=== PATIENT | female | born 1995 | race African-American/Black ===

== ENCOUNTER 2020-03-30 20:02 | Emergency (ER) | payer SELFPAY ==
[~2020-03-30] VITALS: Ht 167.6 cm; Wt 120.6 kg
[2020-03-30] MEDS ORDERED: SODIUM CHLORIDE 0.9% 1,000 ML IV ONE (20:27)
[2020-03-30] MEDS ORDERED: ACTIVATED CHARCOAL 50 G/240 ML TUBE PO ONE (20:30)
[2020-03-30 21:21] LABS: HEMATOCRIT. 36.3 % (36.0-48.0); HEMOGLOBIN. 11.9 g/dL (12.0-16.0); LYMPHOCYTES % 37.1 % (20.0-50.0); MEAN CORPUSCULAR HEMOGLOBIN 27.5 pg (28.0-32.0); MEAN CORPUSCULAR VOLUME 83.9 fL (81.0-99.0); MEAN PLATELET VOLUME 7.9 fl (7.4-10.4); MONOCYTES % 1.2 % (2.0-8.0); NEUTROPHILS % 57.7 % (40.0-76.0); PLATELET 297 x1000/uL (130-400); RED BLOOD CELL COUNT 4.33 mill/uL (4.2-5.4); RED CELL DISTRIBUTION WIDTH 15.8 % (11.6-14.6)
[2020-03-30 21:29] LABS: HCG SCREEN NEGATIVE
[2020-03-30 21:31] LABS: INR 0.9; PROTHROMBIN TIME 10.3 sec (9.6-11.0)
[2020-03-30 21:49] LABS: CHLORIDE 107 mEq/L (98-107)
[2020-03-30 21:53] LABS: ETHANOL BLOOD < 10 mg/dL
[2020-03-30] MEDS ORDERED: LORAZEPAM 2MG/ML CPJ IV ONE (23:30)
[2020-03-31 00:24] LABS: COLOR URINE YELLOW (YELLOW); KETONES URINE TRACE (NEGATIVE); LEUKOCYTE ESTERASE URINE NEGATIVE (NEGATIVE); NITRITE URINE NEGATIVE (NEGATIVE); OCCULT BLOOD URINE NEGATIVE (NEGATIVE); PH URINE 6.5 (4.5-8.0); PROTEIN URINE TRACE (NEGATIVE); SPECIFIC GRAVITY URINE 1.028 (1.005-1.030); UROBILINOGEN URINE 0.2 E.U./dL (0.2-1.0)
[2020-03-31 00:25] LABS: CLARITY URINE HAZY (CLEAR)
[2020-03-31 00:41] LABS: *AMPHETAMINES SCREEN URINE NEGATIVE (NEGATIVE); *BARBITURATES SCREEN URINE NEGATIVE (NEGATIVE); *BENZODIAZEPINES SCREEN URINE NEGATIVE (NEGATIVE); *COCAINE SCREEN URINE NEGATIVE (NEGATIVE); METHADONE URINE SCREEN NEGATIVE (NEGATIVE); OPIATES URINE SCREEN NEGATIVE (NEGATIVE); PHENCYCLIDINE URINE SCREEN NEGATIVE (NEGATIVE)
[2020-03-31 00:43] LABS: CANNABINOID URINE SCREEN NEGATIVE (NEGATIVE)
[2020-03-31] MEDS ORDERED: DIPHENHYDRAMINE 50MG/ML VIAL IM STA (08:43)
[2020-03-31] MEDS ORDERED: LORAZEPAM 2MG/ML CPJ IM STA ×2 (08:43→09:20)
[2020-03-31] MEDS ORDERED: OLANZAPINE 10 MG/VIAL IM ONE ×2 (08:45→08:49)
[2020-03-31] MEDS ORDERED: LORAZEPAM 2MG/ML CPJ ONE (08:49)
[2020-03-31] MEDS ORDERED: DIPHENHYDRAMINE 50MG/ML VIAL ONE (08:49)
[2020-03-31 11:30] VITALS: BP 151/80
== END 2020-03-31 11:30 | disposition home or self-care (01) ==
LOC: ER 20:02
DX: T39.1X2A Poisoning by 4-Aminophenol derivatives, intentional self-harm, initial encounter (principal); D64.9 Anemia, unspecified; Z03.818 Encounter for observation for suspected exposure to other biological agents ruled out; R45.1 Restlessness and agitation; Z78.1 Physical restraint status; Y92.89 Other specified places as the place of occurrence of the external cause
CPT/HCPCS: 36415; 71045; 80053; 80305; 80307; 80320; 80329; 81003; 84703; 85025; 85610; 93005; 96372; 96374; 99285; J1200; J2060; J3490; J7030; G0480; U0003-CS